=== PATIENT | female | born 1990 | race American Indian/Alaskan Native ===

== ENCOUNTER 2017-03-17 13:32 | Emergency (ER) | payer SELFPAY ==
[2017-03-17] MEDS ORDERED: NORCO 5/325 PO ONE (16:07)
--- NOTE | 2017-03-17 16:09 | Emergency Department Report ---
ED ENT HPI - General Chief complaint: Dental/Oral Stated complaint: TOOTHACHE/FACIAL SWELLING Time Seen by Provider: 03/17/17 15:23 Source: patient Mode of arrival: Ambulatory Limitations: No Limitations - History of Present Illness Initial comments: 26-year-old female past medical history asthma presents with complaint of left- sided toothache for over one week. Patient is awake alert and oriented 3 speaking in full sentences denies any pus or blood drainage from mouth. States that she was diagnosed with a wisdom tooth that was growing out of normally several months ago has not addressed issue yet. Patient states she has had persistent toothache for at least 1 week on left upper and lower molar regions. Denies any fever or chills MD complaint: tooth pain Onset/Timin -: week(s) Location: tooth # (17) Severity: moderate Severity scale (0 -10): 7 Quality: stabbing, sharp Consistency: intermittent Improves with: none Worsens with: eating Context- Dental: history of dental caries, poor dental care, other (impacted wisdom tooth) Associated Symptoms: gum swelling - Related Data Previous Rx's Medication Instructions Recorded Last Taken Type Cyclobenzaprine HCl [Flexeril 5 MG 5 mg PO TID #30 tab 05/28/15 Unknown Rx TAB] Ibuprofen [Motrin 800 MG tab] 800 mg PO Q8HR #30 tablet 05/28/15 Unknown Rx traMADol [Ultram 50 MG tab] 50 mg PO Q6HR PRN #20 tablet 05/28/15 Unknown Rx Acetaminophen/Codeine [Tylenol #3] 1 tab PO Q6H PRN #20 tab 07/29/15 Unknown Rx Cyclobenzaprine HCl [Flexeril 5 MG 5 mg PO Q8HR #15 tablet 07/29/15 Unknown Rx TAB] Ibuprofen [Motrin 800 MG tab] 800 mg PO Q8HR PRN #30 tablet 07/29/15 Unknown Rx Ibuprofen [Motrin] 800 mg PO Q8HR PRN #15 tablet 07/09/16 Unknown Rx Penicillin Vk [Veetids TAB] 250 mg PO QID #28 tablet 07/09/16 Unknown Rx Acetaminophen/Codeine [Tylenol 1 tab PO Q6H PRN #14 tab 03/17/17 Unknown Rx /Codeine # 3 tab] Amoxicillin [Trimox CAP] 500 mg PO Q8H #30 capsule 03/17/17 Unknown Rx Chlorhexidine Mouthwash [Peridex] 118 ml MM BID #1 bottle 03/17/17 Unknown Rx Ibuprofen [Motrin] 600 mg PO Q8H PRN #30 tablet 03/17/17 Unknown Rx Allergies Allergy/AdvReac Type Severity Reaction Status Date / Time coconut oil AdvReac Unknown Verified 05/28/15 01:32 mushroom AdvReac Unknown Verified 05/28/15 01:31 pecan nut AdvReac Unknown Verified 05/28/15 01:32 ED Dental HPI - General Chief complaint: Dental/Oral Stated complaint: TOOTHACHE/FACIAL SWELLING Time Seen by Provider: 03/17/17 15:23 Source: patient Mode of arrival: Ambulatory Limitations: No Limitations - Related Data Previous Rx's Medication Instructions Recorded Last Taken Type Cyclobenzaprine HCl [Flexeril 5 MG 5 mg PO TID #30 tab 05/28/15 Unknown Rx TAB] Ibuprofen [Motrin 800 MG tab] 800 mg PO Q8HR #30 tablet 05/28/15 Unknown Rx traMADol [Ultram 50 MG tab] 50 mg PO Q6HR PRN #20 tablet 05/28/15 Unknown Rx Acetaminophen/Codeine [Tylenol #3] 1 tab PO Q6H PRN #20 tab 07/29/15 Unknown Rx Cyclobenzaprine HCl [Flexeril 5 MG 5 mg PO Q8HR #15 tablet 07/29/15 Unknown Rx TAB] Ibuprofen [Motrin 800 MG tab] 800 mg PO Q8HR PRN #30 tablet 07/29/15 Unknown Rx Ibuprofen [Motrin] 800 mg PO Q8HR PRN #15 tablet 07/09/16 Unknown Rx Penicillin Vk [Veetids TAB] 250 mg PO QID #28 tablet 07/09/16 Unknown Rx Acetaminophen/Codeine [Tylenol 1 tab PO Q6H PRN #14 tab 03/17/17 Unknown Rx /Codeine # 3 tab] Amoxicillin [Trimox CAP] 500 mg PO Q8H #30 capsule 03/17/17 Unknown Rx Chlorhexidine Mouthwash [Peridex] 118 ml MM BID #1 bottle 03/17/17 Unknown Rx Ibuprofen [Motrin] 600 mg PO Q8H PRN #30 tablet 03/17/17 Unknown Rx Allergies Allergy/AdvReac Type Severity Reaction Status Date / Time coconut oil AdvReac Unknown Verified 05/28/15 01:32 mushroom AdvReac Unknown Verified 05/28/15 01:31 pecan nut AdvReac Unknown Verified 05/28/15 01:32 ED Review of Systems ROS: Stated complaint: TOOTHACHE/FACIAL SWELLING Other details as noted in HPI Constitutional: denies: chills, fever Eyes: denies: eye pain, eye discharge, vision change ENT: dental pain. denies: ear pain, throat pain Respiratory: denies: cough, shortness of breath, wheezing Cardiovascular: denies: chest pain, palpitations Endocrine: no symptoms reported Gastrointestinal: denies: abdominal pain, nausea, diarrhea Genitourinary: denies: urgency, dysuria, discharge Musculoskeletal: denies: back pain, joint swelling, arthralgia Skin: denies: rash, lesions Neurological: denies: headache, weakness, paresthesias Psychiatric: denies: anxiety, depression Hematological/Lymphatic: denies: easy bleeding, easy bruising ED Past Medical Hx - Past Medical History Hx Asthma: Yes Additional medical history: SS trait - Surgical History Additional Surgical History: 2009 - Social History Smoking Status: Current Every Day Smoker Substance Use Type: None - Medications Home Medications: Home Medications Medication Instructions Recorded Confirmed Last Taken Type Cyclobenzaprine HCl [Flexeril 5 MG 5 mg PO TID #30 tab 05/28/15 Unknown Rx TAB] Ibuprofen [Motrin 800 MG tab] 800 mg PO Q8HR #30 tablet 05/28/15 Unknown Rx traMADol [Ultram 50 MG tab] 50 mg PO Q6HR PRN #20 tablet 05/28/15 Unknown Rx Acetaminophen/Codeine [Tylenol #3] 1 tab PO Q6H PRN #20 tab 07/29/15 Unknown Rx Cyclobenzaprine HCl [Flexeril 5 MG 5 mg PO Q8HR #15 tablet 07/29/15 Unknown Rx TAB] Ibuprofen [Motrin 800 MG tab] 800 mg PO Q8HR PRN #30 tablet 07/29/15 Unknown Rx Ibuprofen [Motrin] 800 mg PO Q8HR PRN #15 tablet 07/09/16 Unknown Rx Penicillin Vk [Veetids TAB] 250 mg PO QID #28 tablet 07/09/16 Unknown Rx Acetaminophen/Codeine [Tylenol 1 tab PO Q6H PRN #14 tab 03/17/17 Unknown Rx /Codeine # 3 tab] Amoxicillin [Trimox CAP] 500 mg PO Q8H #30 capsule 03/17/17 Unknown Rx Chlorhexidine Mouthwash [Peridex] 118 ml MM BID #1 bottle 03/17/17 Unknown Rx Ibuprofen [Motrin] 600 mg PO Q8H PRN #30 tablet 03/17/17 Unknown Rx ED Physical Exam - General Limitations: No Limitations General appearance: alert, in no apparent distress - Head Head exam: Present: atraumatic, normocephalic - Eye Eye exam: Present: normal appearance, PERRL, EOMI - ENT ENT exam: Present: mucous membranes moist - Expanded ENT Exam Expanded Teeth exam: Present: dental tenderness # (tenderness behind tooth #17 along gumline) 1 - Dental Tenderness - Neck Neck exam: Present: normal inspection, full ROM - Respiratory Respiratory exam: Present: normal lung sounds bilaterally. Absent: respiratory distress - Cardiovascular Cardiovascular Exam: Present: regular rate, normal rhythm. Absent: systolic murmur, diastolic murmur, rubs, gallop - GI/Abdominal GI/Abdominal exam: Present: soft, normal bowel sounds - Extremities Exam Extremities exam: Present: normal inspection - Back Exam Back exam: Present: normal inspection - Neurological Exam Neurological exam: Present: alert, oriented X3 - Psychiatric Psychiatric exam: Present: normal affect, normal mood - Skin Skin exam: Present: warm, dry, intact, normal color. Absent: rash ED Course Vital Signs 03/17/17 03/17/17 13:40 16:17 Temperature 98.7 F Pulse Rate 102 H Respiratory 20 20 Rate Blood Pressure 153/76 O2 Sat by Pulse 100 Oximetry ED Medical Decision Making - Medical Decision Making A/P: Dental cavity, possible impacted wisdom tooth 1-Motrin, Tylenol 3, amoxicillin 1 week, Peridex mouthwash 2-possible small dental abscess adjacent tooth 17, no signs of Jd angina on clinical exam no induration and floor of mouth .patient advised to follow up as soon as possible with dentist. I advised patient that lack of follow-up and untreated dental cavity/impacted wisdom tooth can result in infection of face and jaw and if left untreated can progress to sepsis and become lethal. Patient understood these instructions and agreed to follow-up on outpatient basis with dentist as soon as possible. 3-advised to return to ED [facility] for any significant bleeding pus drainage from oral cavity inability to tolerate by mouth, dyspnea shortness of breath muffled voice and/or stridor Critical care attestation.: If time is entered above; I have spent that time in minutes in the direct care of this critically ill patient, excluding procedure time. ED Disposition Clinical Impression: Pain, dental Disposition: DISCHARGED TO HOME OR SELFCARE Is pt being admited?: No Does the pt Need Aspirin: No Condition: Stable Instructions: Dental Abscess (ED), Dental Caries (ED), Toothache (ED) Additional Instructions: [email or web address] Prescriptions: Acetaminophen/Codeine [Tylenol /Codeine # 3 tab] 1 tab PO Q6H PRN #14 tab PRN Reason: Toothache Amoxicillin [Trimox CAP] 500 mg PO Q8H #30 capsule Chlorhexidine Mouthwash [Peridex] 118 ml MM BID #1 bottle Ibuprofen [Motrin] 600 mg PO Q8H PRN #30 tablet PRN Reason: Pain Referrals: [facility] [Outside] - 3-5 Days Forms: Work/School Release Form(ED) Time of Disposition: 16:09
[2017-03-17 16:24] VITALS: BP 128/74
== END 2017-03-17 16:27 | disposition home or self-care (01) ==
LOC: ED 13:32
DX: K08.89 Other specified disorders of teeth and supporting structures (principal); J45.909 Unspecified asthma, uncomplicated; F17.200 Nicotine dependence, unspecified, uncomplicated; Z91.010 Allergy to peanuts; Z91.018 Allergy to other foods
CPT/HCPCS: 99282

== ENCOUNTER 2017-05-17 20:33 | Emergency (ER) | payer SELFPAY ==
[2017-05-17 23:02] LABS: Basophils % (Auto) 0.6 % (0.0-1.8); Eosinophils % (Auto) 2.5 % (0.0-4.3); Hematocrit 36.3 % (30.3-42.9); Hemoglobin 12.2 gm/dl (10.1-14.3); Mean Corpuscular HGB Conc 34 % (30-34); Mean Corpuscular Hemoglobin 27 pg (28-32); Mean Corpuscular Volume 80 fl (79-97); Platelet Count 262 K/mm3 (140-440); Red Blood Count 4.55 M/mm3 (3.65-5.03); Red Cell Distribution Width 13.8 % (13.2-15.2); White Blood Count 11.2 K/mm3 (4.5-11.0)
[2017-05-17 23:27] LABS: Anion Gap 21 mmol/L; Blood Urea Nitrogen 8 mg/dL (7-17); Carbon Dioxide 21 mmol/L (22-30); Glucose 113 mg/dL (65-100); Potassium 3.8 mmol/L (3.6-5.0); Sodium 137 mmol/L (137-145)
[2017-05-18 02:48] LABS: Bilirubin,Urine NEG (Negative); Blood,Urine SM (Negative); Ketones,Urine NEG (Negative); Leukocyte Esterase,Urine TR (Negative); Mucus,Urine FEW /HPF; Nitrite,Urine NEG (Negative); Protein,Urine <15 mg/dL mg/dL (Negative); Urobilinogen,Urine < 2.0 mg/dL (<2.0)
[2017-05-18] MEDS ORDERED: PERCOCET 5/325 PO ONE (07:59)
[2017-05-18] MEDS ORDERED: TORADOL IM ONE (07:59)
--- NOTE | 2017-05-18 08:19 | XRay Report ---
ROUTINE CHEST, TWO VIEWS: HISTORY: chest pain. The trachea, heart, mediastinal contour, lung garcia and bony thorax are unremarkable. IMPRESSION: Unremarkable chest x-ray. No change since 05/28/15.
--- NOTE | 2017-05-18 09:06 | Emergency Department Report ---
ED Chest Pain HPI - General Chief Complaint: Chest Pain Stated Complaint: WEAKNESS,NUMBNESS IN HANDS, LIGHT HEADED Time Seen by Provider: 05/18/17 07:50 Source: patient Mode of arrival: Ambulatory Limitations: No Limitations - History of Present Illness Initial Comments: 27-year-old female with a past medical history of sickle cell trait and asthma presents to the hospital complaining of chest pain 1 month with symptoms worsening yesterday. Patient states she had a cough and cold symptoms 2 weeks ago without fever. She has been having constant sternal chest pressure that is rated 6/10 in intensity, worse with palpation and movement. Patient denies shortness of breath. Mild nausea reported without vomiting. No calf tenderness or edema noted. Yesterday patient had a second episode of generalized fatigue and weakness with associated tingling to her extremities. Patient ate and did not feel any better however after eating candy symptoms began to improve. No paresthesias or significant fatigue reported at this time. Patient also complaining of intermittent ankle edema. PMD: None Severity scale (0 -10): 7 - Related Data Previous Rx's Medication Instructions Recorded Last Taken Type Ibuprofen [Motrin] 800 mg PO Q8HR PRN #30 tablet 05/18/17 Unknown Rx traMADol [Ultram 50 MG tab] 50 mg PO Q6HR PRN #20 tablet 05/18/17 Unknown Rx Allergies Allergy/AdvReac Type Severity Reaction Status Date / Time coconut oil AdvReac Unknown Verified 05/28/15 01:32 mushroom AdvReac Unknown Verified 05/28/15 01:31 pecan nut AdvReac Unknown Verified 05/28/15 01:32 Heart Score - HEART Score History: Slightly suspicious EKG: Normal Age: < 45 Risk factors: No known risk factors Troponin: < normal limit HEART Score: 0 ED Review of Systems ROS: Stated complaint: WEAKNESS,NUMBNESS IN HANDS, LIGHT HEADED Other details as noted in HPI Comment: All other systems reviewed and negative Other: Constitutional: No fevers chills Eyes: No eye pain visual changes ENT: No ear pain or throat pain Neck: Denies pain Respiratory: Denies cough wheezing shortness of breath Cardiovascular: Denies palpitations, syncope GI: Denies abdominal pain, vomiting, diarrhea : Denies dysuria, urinary frequency, or urgency Musculoskeletal: Denies back pain, joint swelling Skin: Denies rash, lesions, erythema Neurologic: Denies headache, numbness, Psychiatric: Denies suicidal ideation, hallucinations ED Past Medical Hx - Past Medical History Previous Medical History?: Yes Hx Asthma: Yes Additional medical history: SS trait - Surgical History Past Surgical History?: Yes Additional Surgical History: 2008 - Social History Smoking Status: Former Smoker Substance Use Type: None - Medications Home Medications: Home Medications Medication Instructions Recorded Confirmed Last Taken Type Ibuprofen [Motrin] 800 mg PO Q8HR PRN #30 tablet 05/18/17 Unknown Rx traMADol [Ultram 50 MG tab] 50 mg PO Q6HR PRN #20 tablet 05/18/17 Unknown Rx ED Physical Exam - General Limitations: No Limitations - Other Other exam information: General: No limitations, patient is alert in no acute distress Head exam: Atraumatic, normocephalic Eyes exam: Normal appearance, pupils equal reactive to light, extraocular movements intact ENT: Moist mucous membrane, normal oropharynx Neck exam: Normal inspection, full range of motion, no meningismus nontender Respiratory exam: Clear to auscultation bilateral, no wheezes, rales, crackles Cardiovascular: Normal rate and rhythm, normal heart sounds, reproducible sternal chest wall tenderness Abdomen: Soft, nondistended, and nontender, with normal bowel sounds, no rebound, or guarding Extremity: Full range of motion normal inspection no deformity, no calf tenderness. Minimal ankle edema noted Back: Normal Inspection, full range of motion, no tenderness Neurologic: Alert, oriented x3, cranial nerves intact, no motor or sensory deficit Psychiatric: normal affect, normal mood Skin: Warm, dry, intact ED Course Vital Signs 05/17/17 05/17/17 05/18/17 20:58 22:24 04:23 Temperature 98.3 F 98.3 F 98.0 F Pulse Rate 86 86 85 Respiratory 18 18 18 Rate Blood Pressure 141/84 125/74 Blood Pressure 141/84 [Right] O2 Sat by Pulse 99 99 98 Oximetry 05/18/17 05/18/17 05/18/17 05:31 05:51 06:00 Temperature 98.6 F Pulse Rate 65 80 Respiratory 16 16 Rate Blood Pressure 129/59 115/70 Blood Pressure 129/59 [Right] O2 Sat by Pulse 100 100 Oximetry 05/18/17 05/18/17 05/18/17 06:01 06:11 06:21 Temperature Pulse Rate 85 61 Respiratory 16 15 18 Rate Blood Pressure 115/76 138/87 Blood Pressure [Right] O2 Sat by Pulse 100 100 100 Oximetry 05/18/17 05/18/17 05/18/17 06:30 06:41 08:14 Temperature Pulse Rate 63 87 76 Respiratory 16 21 18 Rate Blood Pressure 125/88 125/88 Blood Pressure 140/98 [Right] O2 Sat by Pulse 100 100 100 Oximetry - Reevaluation(s) Reevaluation #1: 05/18/17 09:05 Patient given Toradol and Percocet for pain with improvement. Orthostatic vital signs were unremarkable CAMILA score - Camila Score Age > 65: (0) No Aspirin use within the Past 7 Days: (0) No 3 or more CAD Risk Factors: (0) No 2 or more Angina events in past 24 hrs: (0) No Known CAD with more than 50% Stenosis: (0) No Elevated Cardiac Markers: (0) No ST Deviation Greater than 0.5mm: (0) No CAMILA Score: 0 ED Medical Decision Making - Lab Data Result diagrams: 05/17/17 22:47 05/17/17 22:47 Lab Results 05/17/17 05/17/17 05/17/17 Range/Units 22:47 22:47 Unknown WBC 11.2 H (4.5-11.0) K/mm3 RBC 4.55 (3.65-5.03) M/mm3 Hgb 12.2 (10.1-14.3) gm/dl Hct 36.3 (30.3-42.9) % MCV 80 (79-97) fl MCH 27 L (28-32) pg MCHC 34 (30-34) % RDW 13.8 (13.2-15.2) % Plt Count 262 (140-440) K/mm3 Lymph % (Auto) 24.5 (13.4-35.0) % Ralls % (Auto) 5.7 (0.0-7.3) % Eos % (Auto) 2.5 (0.0-4.3) % Baso % (Auto) 0.6 (0.0-1.8) % Lymph # 2.7 (1.2-5.4) K/mm3 Ralls # 0.6 (0.0-0.8) K/mm3 Eos # 0.3 (0.0-0.4) K/mm3 Baso # 0.1 (0.0-0.1) K/mm3 Seg Neutrophils % 66.7 (40.0-70.0) % Seg Neutrophils # 7.5 (1.8-7.7) K/mm3 Sodium 137 (137-145) mmol/L Potassium 3.8 (3.6-5.0) mmol/L Chloride 99.0 (98-107) mmol/L Carbon Dioxide 21 L (22-30) mmol/L Anion Gap 21 mmol/L BUN 8 (7-17) mg/dL Creatinine 0.8 (0.7-1.2) mg/dL Estimated GFR > 60 ml/min BUN/Creatinine Ratio 10.00 % Glucose 113 H (65-100) mg/dL Calcium 9.0 (8.4-10.2) mg/dL Troponin T < 0.010 (0.00-0.029) ng/mL Urine Color Yellow (Yellow) Urine Turbidity Clear (Clear) Urine pH 6.0 (5.0-7.0) Ur Specific [place] 1.017 (1.003-1.030) Urine Protein <15 mg/dl (Negative) mg/dL Urine Glucose (UA) Neg (Negative) mg/dL Urine Ketones Neg (Negative) mg/dL Urine Blood Sm (Negative) Urine Nitrite Neg (Negative) Urine Bilirubin Neg (Negative) Urine Urobilinogen < 2.0 (<2.0) mg/dL Ur Leukocyte Esterase Tr (Negative) Urine WBC (Auto) 2.0 (0.0-6.0) /HPF Urine RBC (Auto) 2.0 (0.0-6.0) /HPF U Epithel Cells (Auto) 3.0 (0-13.0) /HPF Urine Mucus Few /HPF Urine HCG, Qual Negative (Negative) 05/18/17 Range/Units 01:16 WBC (4.5-11.0) K/mm3 RBC (3.65-5.03) M/mm3 Hgb (10.1-14.3) gm/dl Hct (30.3-42.9) % MCV (79-97) fl MCH (28-32) pg MCHC (30-34) % RDW (13.2-15.2) % Plt Count (140-440) K/mm3 Lymph % (Auto) (13.4-35.0) % Ralls % (Auto) (0.0-7.3) % Eos % (Auto) (0.0-4.3) % Baso % (Auto) (0.0-1.8) % Lymph # (1.2-5.4) K/mm3 Ralls # (0.0-0.8) K/mm3 Eos # (0.0-0.4) K/mm3 Baso # (0.0-0.1) K/mm3 Seg Neutrophils % (40.0-70.0) % Seg Neutrophils # (1.8-7.7) K/mm3 Sodium (137-145) mmol/L Potassium (3.6-5.0) mmol/L Chloride (98-107) mmol/L Carbon Dioxide (22-30) mmol/L Anion Gap mmol/L BUN (7-17) mg/dL Creatinine (0.7-1.2) mg/dL Estimated GFR ml/min BUN/Creatinine Ratio % Glucose (65-100) mg/dL Calcium (8.4-10.2) mg/dL Troponin T < 0.010 (0.00-0.029) ng/mL Urine Color (Yellow) Urine Turbidity (Clear) Urine pH (5.0-7.0) Ur Specific [place] (1.003-1.030) Urine Protein (Negative) mg/dL Urine Glucose (UA) (Negative) mg/dL Urine Ketones (Negative) mg/dL Urine Blood (Negative) Urine Nitrite (Negative) Urine Bilirubin (Negative) Urine Urobilinogen (<2.0) mg/dL Ur Leukocyte Esterase (Negative) Urine WBC (Auto) (0.0-6.0) /HPF Urine RBC (Auto) (0.0-6.0) /HPF U Epithel Cells (Auto) (0-13.0) /HPF Urine Mucus /HPF Urine HCG, Qual (Negative) - EKG Data -: EKG Interpreted by Me (sinus rhythm rate [address] abnormality prolonged QT no STEMI) - EKG Data 05/18/17 09:06 Repeat EKG shows sinus with sinus arrhythmia rate [address] abnormality no STEMI - Radiology Data Radiology results: report reviewed Chest x-ray : Unremarkable - Medical Decision Making Patient denies shortness of breath and has normal vital signs with the well's PE criteria score of 0. Pain is reproducible retrosternal patient had a recent viral infection. Diagnosis will be costochondritis. EKG, labs, chest x-ray unremarkable. Patient be discharged home with pain medicines for costochondritis and encouraged to follow with a primary care doctor. - Differential Diagnosis PE, costochondritis, NM, unstable angina, anxiety, thyroid disease, anemia Critical Care Time: No Critical care attestation.: If time is entered above; I have spent that time in minutes in the direct care of this critically ill patient, excluding procedure time. ED Disposition Clinical Impression: Costochondritis, acute, Paresthesia Disposition: TO HOME OR SELFCARE Is pt being admited?: No Does the pt Need Aspirin: No Condition: Stable Instructions: Costochondritis (ED), Paresthesia (ED) Additional Instructions: Take the medication as prescribed. Return if symptoms worsen. Is very important that you follow-up with a primary care doctor for further testing and diagnosis. Prescriptions: Ibuprofen [Motrin] 800 mg PO Q8HR PRN #30 tablet PRN Reason: Pain traMADol [Ultram 50 MG tab] 50 mg PO Q6HR PRN #20 tablet PRN Reason: Pain Referrals: PRIMARY CAREMD [Primary Care Provider] - 3-5 Days [facility] [Provider Group] - 3-5 Days MARITZA BARNEY MD [Staff Physician] - 3-5 Days Time of Disposition: 09:10
[2017-05-18 09:25] VITALS: BP 119/60
== END 2017-05-18 09:24 | disposition home or self-care (01) ==
LOC: ED 20:33
DX: M94.0 Chondrocostal junction syndrome [Tietze] (principal); R20.9 Unspecified disturbances of skin sensation; J45.909 Unspecified asthma, uncomplicated; D57.00 Hb-SS disease with crisis, unspecified; Z87.891 Personal history of nicotine dependence; Z91.02 Food additives allergy status; Z91.018 Allergy to other foods
CPT/HCPCS: 36415; 71020; 80048; 81001; 81025; 84484; 85025; 93005; 93010; 96372; 99285; J1885

== ENCOUNTER 2018-11-29 12:18 | Emergency (ER) | payer OTHER ==
--- NOTE | 2018-11-29 13:26 | Emergency Department Report ---
Blank Doc - Documentation Documentation: 28 y o female presents with pelv pain x 3 days denies dysuria, vag d/c missed cycles LMP 09/26/18 Ua/upt reevaluate
[2018-11-29 14:25] LABS: Bilirubin,Urine NEG (Negative); Blood,Urine NEG (Negative); Color,Urine Yellow (Yellow); Protein,Urine <15 mg/dL mg/dL (Negative)
[2018-11-29 14:30] LABS: HCG Qualitative,Urine Negative (Negative)
[2018-11-29 17:41] LABS: Basophils # (Auto) 0.1 K/mm3 (0.0-0.1); Basophils % (Auto) 1.2 % (0.0-1.8); Eosinophils # (Auto) 0.2 K/mm3 (0.0-0.4); Eosinophils % (Auto) 2.3 % (0.0-4.3); Hematocrit 38.5 % (30.3-42.9); Hemoglobin 12.7 gm/dl (10.1-14.3); Lymphocytes # (Auto) 2.8 K/mm3 (1.2-5.4); Lymphocytes % (Auto) 28.1 % (13.4-35.0); Mean Corpuscular HGB Conc 33 % (30-34); Mean Corpuscular Volume 81 fl (79-97); Monocytes # (Auto) 0.6 K/mm3 (0.0-0.8); Monocytes % (Auto) 5.6 % (0.0-7.3); Platelet Count 304 K/mm3 (140-440); Red Blood Count 4.77 M/mm3 (3.65-5.03); Red Cell Distribution Width 14.1 % (13.2-15.2)
[2018-11-29] MEDS ORDERED: TORADOL IV ONE (17:43)
[2018-11-29] MEDS ORDERED: NACL 0.9% 1000 ML 1,000 ML IV ONE (17:43)
[2018-11-29 17:56] LABS: Alanine Aminotransferase 11 units/L (7-56); BUN/Creatinine Ratio 10; Blood Urea Nitrogen 8 mg/dL (7-17); Hemolysis Index 5
[2018-11-29 18:01] LABS: Bilirubin,Direct < 0.2 mg/dL (0-0.2)
--- NOTE | 2018-11-29 18:05 | Emergency Department Report ---
ED Female HPI - General Chief complaint: Abdominal Pain Stated complaint: MISSED CYCLE/BACK/STOMACH PAIN Time Seen by Provider: 11/29/18 13:24 Source: patient Mode of arrival: Ambulatory Limitations: No Limitations - History of Present Illness Initial comments: This is a 28-year-old female nontoxic, well nourished in appearance, no acute signs of distress presents to the ED with c/o of pelvic pain. Patient ddenies any nausea or vomiting. Patient describespelvic pain as cramping and aching with level of 3/10. Patient stated that pain radiates to lower back area. Patient denies chest pain, short of breath, fever, chills, headache, stiff neck, numbness or tingling. Patient denies any diarrhea or constipation. Patient denies any recent travels. Patient denies any drug allergies or PMH. MD Complaint: pelvic pain -: days(s) Radiation: non-radiating Severity: mild Severity scale (0 -10): 3 Quality: cramping Consistency: constant Improves with: none Worsens with: none Are you Now?: No Associated Symptoms: denies: vaginal discharge, vaginal bleeding, abdominal pain, nausea/vomiting, fever/chills, headaches, loss of appetite, dysuria, hematuria, rash, seizure, shortness of breath, syncope, weakness - Related Data Previous Rx's Medication Instructions Recorded Last Taken Type Ibuprofen [Motrin] 800 mg PO Q8HR PRN #30 tablet 05/18/17 Unknown Rx traMADol [Ultram 50 MG tab] 50 mg PO Q6HR PRN #10 tablet 08/20/18 Unknown Rx Ibuprofen [Motrin] 600 mg PO Q8H PRN #20 tablet 11/29/18 Unknown Rx Ondansetron [Zofran Odt] 4 mg PO Q8HR PRN #20 tab.rapdis 11/29/18 Unknown Rx Polyethylene Glycol 3350 [Miralax 17 gm PO QDAY PRN 30 Days packet 11/29/18 Unknown Rx 3350] Allergies Allergy/AdvReac Type Severity Reaction Status Date / Time coconut oil AdvReac Unknown Verified 05/28/15 01:32 mushroom AdvReac Unknown Verified 05/28/15 01:31 pecan nut AdvReac Unknown Verified 05/28/15 01:32 ED Review of Systems ROS: Stated complaint: MISSED CYCLE/BACK/STOMACH PAIN Other details as noted in HPI Constitutional: denies: chills, fever Eyes: denies: eye pain, eye discharge, vision change ENT: denies: ear pain, throat pain Respiratory: denies: cough, shortness of breath, wheezing Cardiovascular: denies: chest pain, palpitations Endocrine: no symptoms reported Gastrointestinal: other (pelvic pain). denies: abdominal pain, nausea, vomi ting, diarrhea Genitourinary: denies: urgency, dysuria, discharge Musculoskeletal: back pain. denies: joint swelling, arthralgia Skin: denies: rash, lesions Neurological: denies: headache, weakness, paresthesias Psychiatric: denies: anxiety, depression Hematological/Lymphatic: denies: easy bleeding, easy bruising ED Past Medical Hx - Past Medical History Hx Asthma: Yes Additional medical history: SS trait - Surgical History Additional Surgical History: 2008 - Social History Smoking Status: Never Smoker Substance Use Type: None - Medications Home Medications: Home Medications Medication Instructions Recorded Confirmed Last Taken Type Ibuprofen [Motrin] 800 mg PO Q8HR PRN #30 tablet 05/18/17 Unknown Rx traMADol [Ultram 50 MG tab] 50 mg PO Q6HR PRN #10 tablet 08/20/18 Unknown Rx Ibuprofen [Motrin] 600 mg PO Q8H PRN #20 tablet 11/29/18 Unknown Rx Ondansetron [Zofran Odt] 4 mg PO Q8HR PRN #20 tab.rapdis 11/29/18 Unknown Rx Polyethylene Glycol 3350 [Miralax 17 gm PO QDAY PRN 30 Days packet 11/29/18 Unknown Rx 3350] ED Physical Exam - General Limitations: No Limitations General appearance: alert, in no apparent distress - Head Head exam: Present: atraumatic, normocephalic - Eye Eye exam: Present: normal appearance - ENT ENT exam: Present: mucous membranes moist - Neck Neck exam: Present: normal inspection, full ROM - Respiratory Respiratory exam: Present: normal lung sounds bilaterally. Absent: respiratory distress, wheezes, rales, rhonchi, stridor, chest wall tenderness, accessory muscle use, decreased breath sounds, prolonged expiratory - Cardiovascular Cardiovascular Exam: Present: regular rate, normal rhythm, normal heart sounds. Absent: bradycardia, tachycardia, irregular rhythm, systolic murmur, diastolic murmur, rubs, gallop - GI/Abdominal GI/Abdominal exam: Present: soft, normal bowel sounds. Absent: distended, tenderness, guarding, rebound, rigid, diminished bowel sounds - Expanded GI/Abdominal Exam Expanded GI/Abdominal exam: Absent: psoas sign, Underwood's sign, Rovsing's sign, tenderness at Mcburney's Point, ascites - Extremities Exam Extremities exam: Present: normal inspection, full ROM - Back Exam Back exam: Present: normal inspection, full ROM - Neurological Exam Neurological exam: Present: alert, oriented X3 - Psychiatric Psychiatric exam: Present: normal affect, normal mood - Skin Skin exam: Present: warm, dry, intact, normal color. Absent: rash ED Course Vital Signs 11/29/18 13:06 Temperature 97.9 F Pulse Rate 90 Respiratory 16 Rate Blood Pressure 128/64 O2 Sat by Pulse 100 Oximetry - Reevaluation(s) Reevaluation #1: 11/29/18 18:06 Patient is speaking in full sentences with no signs of distress noted. ED Medical Decision Making - Lab Data Result diagrams: 11/29/18 17:30 11/29/18 17:30 - Medical Decision Making This is a 28-year-old female that presents with constipation, pelvic pain and back pain. Patient is stable and was examined by me. There is no abdominal or pelvic tenderness. Negative signs of symptoms of appendicitis. Labs obtained. UA obtained. US/Xray of abdomen obtained and dictated by the radiologist. Patient is notified of the report with no questions noted by the patient. Vital signs are stable prior to discharge. Patient received 1L normal saline and Toradol in the ED which patient stated symptoms has resolved and subsided. A by mouth challenge has been obtained and patient tolerated well with no nausea vomiting. Patient was notified of strict precautions of appendicitis symptoms and to return to the ED if symptoms occurs as soon as possible. Patient was also instructed to Follow-up with a primary care doctor in 3-5 days or if symptoms worsen and continue return to emergency room as soon as possible. At time of discharge, the patient does not seem toxic or ill in appearance. No acute signs of distress noted. Patient agrees to discharge treatment plan of care. No further questions noted by the patient. Critical care attestation.: If time is entered above; I have spent that time in minutes in the direct care of this critically ill patient, excluding procedure time. ED Disposition Clinical Impression: Pelvic pain Constipation Qualifiers: Constipation type: unspecified constipation type Qualified Code(s): K59.00 - Constipation, unspecified Disposition: - TO HOME OR SELFCARE Is pt being admited?: No Does the pt Need Aspirin: No Condition: Stable Instructions: Constipation (ED), High Fiber Diet (ED), Abdominal Pain (ED) Additional Instructions: Follow-up with a primary care doctor in 3-5 days or if symptoms worsen and continue return to emergency room as soon as possible. Prescriptions: Ibuprofen [Motrin] 600 mg PO Q8H PRN #20 tablet PRN Reason: Pain Ondansetron [Zofran Odt] 4 mg PO Q8HR PRN #20 tab.rapdis PRN Reason: Nausea Polyethylene Glycol 3350 [Miralax 3350] 17 gm PO QDAY PRN 30 Days packet PRN Reason: Constipation Referrals: ROBERTO VANEGAS [Primary Care Provider] - 3-5 Days PRIMARY MD HASMUKH [Referring] - 3-5 Days TY GÓMEZ MD [Staff Physician] - 3-5 Days [facility] [Outside] - 3-5 Days [facility] [Outside] - 3-5 Days Forms: Work/School Release Form(ED)
--- NOTE | 2018-11-29 18:55 | XRay Report ---
FINAL REPORT EXAM: XR ABD SERIES W CXR 1V HISTORY: abd pain TECHNIQUE: Frontal view of the chest and frontal views of the abdomen and pelvis in the supine and u pright positions Comparison: None FINDINGS: The the there is no evidence of pulmonary infiltrate, pneumothorax or pleural fluid collection. The cardiomediastinal silhouette is normal in appearance. The bony structures are unremarkable. The bowel gas pattern is nonobstructive in appearance. There is a [id number] amount of stool throughout the colon. There is no evidence of pneumoperitoneum nor organomegaly. The bony structures are notable for mild dextrocurvature of the lower thoracic spine. IMPRESSION: 1. No evidence of an acute pulmonary process. 2. No plain film evidence of an acute intra-abdominal process. If there is a clinical concern of an acute intra-abdominal process, CT may be helpful for further harinder luation. 3. Moderate amount of stool in the colon.
[2018-11-29 22:01] VITALS: BP 114/64
--- NOTE | 2018-12-03 14:13 | Ultrasound Report ---
FINAL REPORT EXAM: US PELVIS DUPLEX DOPPLER COMP HISTORY: pelvic pain . LMP 09/26/2018 with regular menstrual cycles. Bilateral pelvic pain TECHNIQUE: Ultrasound of the pelvis using transabdominal and transvaginal imaging PRIORS: None. FINDINGS: Uterus: Uterus is normal in size and normal and homogeneous in echogenicity . The uterus measures 7.7 x 3.6 x 5.5 cm in size. There is a focal isoechoic fibroid in the anterior midbody of the uterus aysha suring 1.9 x 1.8 x 1.7 cm. There is also a small nabothian cyst in the cervix measuring 5 x 4 x 6 mm. Endometrial stripe: Normal and uniform in thickness measuring 7.8 mm. Ovaries: Both ovaries appear normal in size and echogenicity with normal blood flow bilaterally. The right ovary measures 2.2 x 1.2 x 2.2 cm and the left ovary measures 2.1 x 1.4 x 1.6 cm in size. Other: There is no evidence for solid adnexal mass or free fluid in the cul-de-sac seen. IMPRESSION: Uterus contains a fibroid in the anterior midbody. Otherwise negative exam
== END 2018-11-29 22:01 | disposition home or self-care (01) ==
LOC: ED 12:18
DX: K59.00 Constipation, unspecified (principal); J45.909 Unspecified asthma, uncomplicated
CPT/HCPCS: 36415; 74022; 76830; 80048; 80076; 81001; 81025; 83690; 85025; 93975; 96374; 99284; J1885; J7030